=== PATIENT | female | born 2000 | race Caucasian/White ===

== ENCOUNTER 2025-04-03 20:01 | Emergency (ER) | payer MEDICAID ==
[~2025-04-03] VITALS: Ht 170.2 cm; Wt 68.2 kg
[2025-04-03 20:19] VITALS: BP 110/56; PULSE 88; RESP 15; O2SAT 98
--- NOTE | 2025-04-03 20:30 | Physician Documentation ---
HPI ~ General Chief Complaint: Medication Refill Stated Complaint: MED REQUEST Time Seen by MD: 20:27 History of Present Illness HPI Comments This is a 25-year-old female who presents requesting a refill of her long-acting insulin, patient reports she does not know what dose insulin she normally takes as she previously had an insulin pump though her insurance is no longer covering the insulin pump. Patient reports he has prescription for short-acting insulin however is requiring long-acting insulin prescription. Patient reports she was previously on Lantus though this was some time ago and does not remember the dosing. Patient reports she feels otherwise well and has no acute concerns or symptoms. Medication Reconciliation Allergies: Coded Allergies: No Known Allergies (Unverified , 04/03/25) Scheduled Glucagon,Human Recombinant (Glucagon Emergency Kit), 1 MG IM ONCE Insulin Glargine,Hum.rec.anlog* (Lantus*), 14 UNITS SUBCUT HS Miscellaneous Medications Insulin Aspart (Insulin Aspart Flexpen), (Reported) Insulin Glargine,Hum.rec.anlog (Lantus), 50 UNIT SQ, (Reported) Past Medical History Past Medical History: Diabetes (Type 1) Review of Systems ROS As stated above in the HPI, otherwise all systems are reviewed and negative. Physical Exam Physical Exam Vital Signs: Temperature: 98.6, Source: Temporal, Heart Rate: 88, Respiratory Rate: 15, BP: 110/56, Pulse Oximetry: 98, Weight: 68.150 Physical Exam VITALS: Reviewed and as above. GENERAL: Alert, nontoxic appearing, no apparent distress. RESPIRATORY: No increased work of breathing, no respiratory distress, speaking in full clear sentences Progress Results/Orders Results/Orders Vital Signs 04/03/25 04/04/25 20:19 00:11 Temp 98.6 98.6 Pulse 88 Resp 15 B/P (MAP) 110/56 Pulse Ox 98 Medical Decision Making Findings This 25-year-old female presented to the emergency department requesting refill of long-acting insulin, as patient has been off this medication for some time and does not know dosing she will be started on a standard 0.2 units/kilogram starting dose of long-acting insulin and instructed to continue utilizing her previously prescribed short-acting insulin with previously prescribed corrections. I discussed with the patient the importance of following up with her primary care provider as soon as possible for continued management of her diabetes and insulin outpatient as this medication requires frequent adjustments when starting a new regime. Patient provided home care instructions, return to care precautions, and follow up instructions which he verbalized understanding of. Differential Dx:Considerations: Include: Adverse circumstances, Economic, Psychosocial, Medical services unavail., Medication refill Departure Disposition: HOME / SELF CARE / HOMELESS Impression: Primary Impression: History of type 1 diabetes mellitus Additional Impression: Medication refill Condition: Improved Discharge Instructions: Medicine Refill at the Emergency Department Additional Instructions: Please follow up as soon as possible with your primary care provider. Use your Rapid Acting Insulin as previously prescribed for meal correction doses and use the Long Acting Insulin that is prescribed at Bedtime. Please return to the emergency department for any new or worsening concerning symptoms. Referrals: NO PRIMARY CARE PROVIDER (PCP) Prescriptions Insulin Glargine,Hum.rec.anlog* (Lantus*) 100 Unit/1 Ml Vial 14 UNITS SUBCUT HS for 30 Days, #5 ML Prov: MALKA HER 04/03/25 Glucagon,Human Recombinant (Glucagon Emergency Kit) 1 Mg Kit 1 MG IM ONCE, #1 KIT 0 Refills Prov: MALKA HER 04/03/25 Education Educated: Patient Educated regarding: diagnosis, treatment, prognosis, need for follow up Signature Scribe Signature: No scribe Attestation: The note accurately reflects work and decisions made by me.RIGOBERTO Snow 04/04/25 03:11 MALKA HER April 03, 2025 20:30
[2025-04-03] MEDS ORDERED: INSU100V9 SQ (22:06)
[2025-04-03] MEDS ORDERED: INSU100I52 (22:06)
[2025-04-03] MEDS ORDERED: GLUC1VIA IM (23:52)
[2025-04-03] MEDS ORDERED: LANTUS SUBCUT (23:52)
[2025-04-04 00:11] VITALS: TEMP 98.6
== END 2025-04-04 00:18 | disposition home or self-care (01) ==
LOC: ER 20:02
DX: E10.9 Type 1 diabetes mellitus without complications (principal); Z76.0 Encounter for issue of repeat prescription
CPT/HCPCS: 99283